=== PATIENT | male | born 1960 | race Caucasian/White ===

== ENCOUNTER → 2016-07-17 | Day surgery (SDC) | payer MEDICARE ==
--- NOTE | 2016-07-16 08:16 | MH ---
cc: JARED VARGAS DATE OF ADMISSION 07/17/2016 INDICATIONS This is a 55-year-old male with nasal fracture, nasal obstruction. The patient is brought to the operating room for closed reduction with stabilization. PAST MEDICAL HISTORY 1. No known drug allergies. 2. Significant for anxiety depression. MEDICATIONS Include: 1. Abilify 2. Lexapro PHYSICAL EXAMINATION A well-developed, well-nourished male in no apparent distress. HEAD, EYES, EARS, NOSE, AND THROAT: Normocephalic, atraumatic. Extraocular motions intact. External ear canals clear. Lips, oral mucosa and oropharynx show no lesion. The nasal exam shows nasal fracture with obstruction. CHEST: Clear to auscultation. HEART: Regular rate. ABDOMEN: Soft. EXTREMITIES: No lesion. NEUROLOGIC: Exam nonfocal. ASSESSMENT This is a 55-year-old male with nasal obstruction, nasal fracture. PLAN The patient is to undergo closed reduction, stabilization. The risks and benefits were discussed with the patient. The risks include not limited to those of anesthesia, bleeding, unfavorable scarring, CSF leak, meningitis, brain abscess, double vision, vision loss, blindness, anosmia, septal perforation, epistaxis. The patient states she understands and accepts the risks of the procedure. MD LORAINE Casas/AHMET /7:42 AM /8:11 AM
[~2016-07-17] VITALS: Ht 177.8 cm; Wt 94.1 kg
[~2016-07-17] MED LIST: *MEPERIDINE 25 MG INJ VIAL PERIprocedural Use ONLY ONE; ACETAMINOPHEN/HYDROcodone 325 MG/5 MG TAB ONE; ANTI2TAB PO; APREPITANT 40 MG CAP ONE; ARIP1TAB5 PO; BENZ1TAB PO; CELE200C PO; COLE1TAB2 PO; EPINEPHrine HCL (1:1000) 1 MG/ML VIAL OTHER ONE; ESZO3TAB4 PO; FAMOTIDINE 20 MG/2 ML VIAL ONE; GABA400C5 PO; LEXA20TA PO; LORA1TAB12 PO; MIDAZOLAM HCL 2 MG/2 ML VIAL ONE; NORT25CA PO; ONDANSETRON HCL 4 MG/2 ML VIAL IV PUSH ONE; PERC5TAB12 PO; PROPOFOL 200 MG/20 ML AMP IV ONE
[2016-07-17 08:28] VITALS: BP 149/97; PULSE 72; RESP 16; TEMP 98.3; O2SAT 97
--- NOTE | 2016-07-17 08:47 | EKG ---
Date Performed: 07/17/2016 Time Performed: 08:16:55 PTAGE: 55 years EKG: Sinus rhythm POSSIBLE RIGHT VENTRICULAR CONDUCTION DELAY BORDERLINE ECG NO PREVIOUS TRACING DOCTOR: Son Ramirez Interpretating Date/Time 07/17/2016 08:46:19
[2016-07-17 08:55] LABS: AUTOMATED NEUTROPHIL # 4.1 TH/MM3 (1.8-7.7); BASOPHIL % 0.8 % (0.0-2.0); EOSINOPHIL # 0.2 TH/MM3 (0-0.4); HEMATOCRIT 42.9 % (39.0-51.0); HEMO FLAGS DIFF FINAL; LYMPH % 21.6 % (9.0-44.0); LYMPHOCYTE # 1.3 TH/MM3 (1.0-4.8); MEAN CELL VOLUME 84.3 FL (80.0-100.0); MEAN CORPUSCULAR HEMOGLOBIN 28.4 PG (27.0-34.0); MEAN CORPUSCULAR HGB CONC 33.7 % (32.0-36.0); MONO % 7.9 % (0.0-8.0); NEUT % 66.7 % (16.0-70.0); PLATELET COUNT 241 TH/MM3 (150-450); RED BLOOD COUNT 5.08 MIL/MM3 (4.50-5.90); RED CELL DISTRIBUTION WIDTH 13.5 % (11.6-17.2); WHITE BLOOD COUNT 6.1 TH/MM3 (4.0-11.0)
--- NOTE | 2016-07-17 10:00 | MP ---
cc: JARED VARGAS DATE OF SURGERY: 07/17/2016 DATE OF 1960 INDICATIONS This is a 55-year-old male who presents with a history of nasal fracture, nasal obstruction. He is brought to the operating room for closed reduction nasal fracture with stabilization. SUMMARY The patient brought to the operating room, placed in the supine position, successfully placed under general anesthesia and prepared in the usual fashion for this procedure. The nose was topically decongested with adrenaline and reduction was completed with digital distraction of the bone and blunt instrument internally for elevation. The patient had a dorsal splint placed. He tolerated procedure well and was taken to recovery in stable condition. MD LORAINE Casas/AHMET /9:44 AM /10:06 AM
[2016-07-17 12:35] VITALS: BP 125/73; PULSE 80; RESP 17; TEMP 98; O2SAT 96
== END | disposition home or self-care (01) ==
LOC: HSDC 07:40
PROVIDERS: ATTEND Specialist
DX: S02.2XXA Fracture of nasal bones, initial encounter for closed fracture (principal); I10 Essential (primary) hypertension; R94.31 Abnormal electrocardiogram [ECG] [EKG]; F41.8 Other specified anxiety disorders
CPT/HCPCS: 00160; 21320; 85025; 93005; J0171; J2175; J2250; J2405; J3010; J8501